=== PATIENT | female | born 1945 | race Caucasian/White ===

== ENCOUNTER 2016-09-14 09:23 | Day surgery (SDC) | payer MEDICARE ==
[2016-09-12 16:11] VITALS: BMI 28.3
--- NOTE | 2016-09-13 15:05 | HP ---
DATE OF ADMISSION: 09/14/2016 Ashley Felipe is a 71-year-old patient seen with progressive left knee pain. After having treatment options discussed, she elected to proceed with left knee arthroscopy. Consent was obtained. Medical clearance provided by Dr. Shon Kc. Past medical history is hypertension, hyperlipidemia, osteoarthritis. PAST SURGICAL HISTORY: Hysterectomy, right knee arthroscopy, trigger thumb release. Daily medications are Cozaar, Evista, simvastatin, Aleve. ALLERGIES: SULFA. SOCIAL HISTORY: Patient denies tobacco use. Evaluation of the left knee: Range of motion is -3 to 115 degrees. There is tenderness along the medial joint line. A positive medial Shraddha's. Crepitus along the medial compartment and some discomfort of the patellofemoral compression. Ligaments stable. Hip rotation without pain. Distal neurovascular exam is intact. Radiographs of the left knee revealed moderate medial and mild patellofemoral compartment osteoarthritis. An MRI of the left knee revealed a complex tear involving the posterior medial meniscus as well as some osteoarthritic changes. IMPRESSION: Internal derangement of the left knee with medial meniscal tear. PLAN: Left knee arthroscopy with partial meniscectomy and debridement.
[~2016-09-14 09:23] MED LIST: DEXAMETHASONE SOD PHOSPHATE 10 MG/ML 1 ML VIAL IV ONE; LACTATED RINGERS 1,000 ML IV SCH; LIDOCAINE 1% 20 ML VIAL (10MG/ML) FOR IV START INTRADERMA PRN; MIDAZOLAM 2 MG/2 ML VIAL IV PRN; ONDANSETRON 4 MG/2 ML VIAL IVP ONE; Pre Op ABX Message 1 EACH MISC MISCELLANE ONE; SCOPOLAMINE 1.5MG/72HR PATCH TRANSDERM ONE
[2016-09-14] MEDS ORDERED: ceFAZolin 2 GM in SODIUM CHLORIDE 0.9% 100 ML IVPB STA (10:19)
[2016-09-14] MEDS ORDERED: PROPOFOL 10 MG/ML 20 ML VIAL IV ONE (11:23)
[2016-09-14] MEDS ORDERED: MIDAZOLAM 2 MG/2 ML VIAL ONE (11:23)
[2016-09-14] MEDS ORDERED: fentaNYL (PF) 50 MCG/ML 2 ML AMP ONE (11:23)
[2016-09-14] MEDS ORDERED: LIDOCAINE 1% INJ 10MG/ML (20 ML MDV) ONE (11:23)
[2016-09-14] MEDS ORDERED: SUCCINYLCHOLINE CHLORIDE 100 MG/5 ML SYR IV ONE (11:23)
[2016-09-14] MEDS ORDERED: BUPIVACAIN-EPI 0.25%-1:200,000 30 ML VIAL INTRAARTIC ONE ×2 (11:50→12:11)
--- NOTE | 2016-09-14 12:38 | P.OP ---
Date of Procedure: 09/14/16 Preoperative Diagnosis: Internal derangement left knee Postoperative Diagnosis: 1. Tear medial and lateral meniscus left knee 2. Grade 3 chondromalacia medial femoral condyle left knee 3. Grade 3 chondromalacia lateral tibial plateau left knee 4. Grade 2/3 chondromalacia patella left knee 5. Reactive synovitis medial and suprapatellar compartments left knee Procedure(s) Performed: 1. Arthroscopic partial medial and lateral meniscectomy left knee 2. Arthroscopic chondroplasty medial femoral condyle left knee 3. Arthroscopic chondroplasty lateral tibial plateau left knee 4. Arthroscopic chondroplasty patella left knee 5. Arthroscopic partial synovectomy medial and suprapatellar compartments left knee Anesthesia: GETA Surgeon: Johny Soni Estimated Blood Loss (ml): 10 Pathology: none sent Condition: stable Disposition: PACU Indications for Procedure: 71-year-old patient seen with progressive pain. After having treatment options discussed, she elected to proceed with left knee arthroscopy. Description of Procedure: Patient was taken to the operative suite. Patient underwent a general anesthetic by the department of anesthesia. Patient was given preoperative antibiotics. The left lower extremity was placed in a well-padded arthroscopic leg coleman. The left leg was prepped and draped in the normal sterile orthopedic fashion. A lateral parapatellar and suprapatellar incision was made. Trochars were inserted. Arthroscopy was initiated. Suprapatellar pouch revealed diffuse thick reactive synovitis. The patellofemoral joint appeared to articulate congruently. There was grade 2/3 chondromalacia. The scope was guided into the medial gutter. No loose bodies or plica were identified. The scope was then guided into the medial compartment. A medial parapatellar incision was made. Trocar inserted followed by probe. There was a complex tear involving the posterior horn and midbody medial meniscus. There were grade 2-3 chondromalacia changes of medial femoral condyle with osteochondral tears present. There was reactive synovitis anteriorly. A partial medial meniscectomy was performed on a stable tissue. A chondroplasty was performed of the medial femoral condyle as well as a partial synovectomy. The residual meniscus and osteochondral surface were probed and found to be stable. Scope and probe were then guided into the intercondylar notch. Cruciates were identified, probed and found to be stable. The scope and probe were then guided into lateral compartment. There was a complex tear posterior horn lateral meniscus. There were grade 3 chondromalacia changes of the lateral tibial plateau and grade 3, she is femoral condyle. A partial lateral meniscectomy was performed on a stable tissue. A chondroplasty lateral femoral condyle and tibial plateau were also performed. The residual meniscus was stable. The scope was in guided back into the suprapatellar compartment. A motorize shaver was introduced into the super compartment performing a chondroplasty the patella. I debrided out some piecemeal fragments of meniscus. I performed a partial synovectomy. The shaver was removed. I took one more look on the entire knee, no residual debris. Instruments were now removed from the joint. The joint was infiltrated with .25% Marcaine. Steri- Strips were applied to the portal sites. Sterile dressings were applied. The patient was placed into a LUCIA hose. No tourniquet was utilized. The patient was awakened, transferred to a bed and taken to recovery stable satisfactory condition.
[2016-09-14 12:40] VITALS: TEMP 97.5
[2016-09-14] MEDS: HYDROmorphone 1 MG/ML 1 ML SYRINGE IVP PRN ×4 (12:49→13:05)
[2016-09-14 13:51] VITALS: RESP 16
[2016-09-14 14:23] VITALS: BP 119/69; PULSE 81
[2016-09-14] MEDS ORDERED: ONDANSETRON 4 MG/2 ML VIAL IVP ONE (14:53)
== END 2016-09-14 15:10 | disposition home or self-care (01) ==
LOC: OR 09:23
PROVIDERS: ATTEND Orthopaedic Surgery
DX: S83.282A Other tear of lateral meniscus, current injury, left knee, initial encounter (principal); S83.242A Other tear of medial meniscus, current injury, left knee, initial encounter; M65.9 Synovitis and tenosynovitis, unspecified; M22.42 Chondromalacia patellae, left knee; I10 Essential (primary) hypertension; E78.5 Hyperlipidemia, unspecified; M17.12 Unilateral primary osteoarthritis, left knee; Z79.1 Long term (current) use of non-steroidal anti-inflammatories (NSAID); Z79.899 Other long term (current) drug therapy; Z88.2 Allergy status to sulfonamides; X58.XXXA Exposure to other specified factors, initial encounter; Z88.5 Allergy status to narcotic agent; Z88.0 Allergy status to penicillin; Z79.82 Long term (current) use of aspirin
CPT/HCPCS: 29880; J2250; J1100; J0690; J2405; J2001; J3010; J1170; J0330; J2704

== ENCOUNTER → 2018-02-19 | Outpatient (CLI) | payer MEDICARE | END | disposition home or self-care (01) | LOC: LABPAT 12:06 | PROVIDERS: ATTEND Orthopaedic Surgery | DX: Z01.812 Encounter for preprocedural laboratory examination (principal) | CPT/HCPCS: 87070 ==

== ENCOUNTER 2018-03-25 10:41 | Inpatient (IN) | payer MEDICARE ==
[2018-03-19 07:58] VITALS: BMI 28.5
--- NOTE | 2018-03-24 13:25 | HP ---
HISTORY AND PHYSICAL REASON FOR ADMISSION: Surgery scheduled for 03/25/2018 HISTORY OF PRESENT ILLNESS: Ashley Felipe is a 72-year-old patient seen with symptomatic right knee osteoarthritis. Treatment options discussed. She elected to proceed right total knee arthroplasty. Consent was obtained, clearance was provided by Dr. Shon Kc. PAST MEDICAL HISTORY: Hypertension, hyperlipidemia. PAST SURGICAL HISTORY: Hysterectomy, right knee arthroscopy, trigger thumb release. MEDICATIONS: Cozaar, Evista, simvastatin, Tylenol. ALLERGIES: SULFA. SOCIAL HISTORY: Patient denies current tobacco use. PHYSICAL EXAMINATION: Evaluation right knee range of motion -6/7 110 degrees. Tenderness along the medial joint line. Crepitus medial patellofemoral compartments with range of motion. Pain with patellofemoral compression. Ligaments stable. Hip rotation without pain. Distal neurovascular exam intact. RADIOGRAPHS: Which were obtained of the right knee revealed severe medial and moderate patellofemoral compartment osteoarthritis. IMPRESSION: 1. Right knee osteoarthritis. 2. Hyperlipidemia. 3. Hypertension. PLAN: Right total knee arthroplasty. Surgery scheduled for 03/25/2018. MMODL / IJN: [id number] /
[~2018-03-25 10:41] MED LIST changes: +ACETAMINOPHEN TAB 500 MG TAB PO ONE; -DEXAMETHASONE SOD PHOSPHATE 10 MG/ML 1 ML VIAL IV ONE; -LACTATED RINGERS 1,000 ML IV SCH; +MELOXICAM 7.5 MG TAB PO ONE; +ONDANSETRON 4 MG/2 ML VIAL ONE; -Pre Op ABX Message 1 EACH MISC MISCELLANE ONE; +ROPIVACAINE 1,100 MG, SODIUM CHLORIDE 0.9% 330 ML MISCELLANE PRN; -SCOPOLAMINE 1.5MG/72HR PATCH TRANSDERM ONE; +TRANEXAMIC ACID 1,000 MG in SODIUM CHLORIDE 0.9% 50 ML IVPB ONE; +ceFAZolin IN SWFI 2 GM/20 ML SYRINGE IVP ONE; +fentaNYL (PF) 50 MCG/ML 2 ML AMP IV PRN
[2018-03-25] MEDS ORDERED: DEXAMETHASONE SOD PHOS (MDV) 100 MG/10 ML VIAL IVP ONE (11:42)
[2018-03-25] MEDS ORDERED: LACTATED RINGERS 1,000 ML IV ONE ×2 (11:42→14:26)
[2018-03-25] MEDS ORDERED: MIDAZOLAM 2 MG/2 ML VIAL ONE ×2 (11:42→12:49)
--- NOTE | 2018-03-25 12:35 | P.ONQ ---
Anesthesiology Proc Note - PNB - Peripheral Nerve Block Performed Right Adductor Canal Infusion Time Out Performed: Yes Procedure Start Time: 11:52 Indication: Acute Post-Operative Pain, Analgesia Specifically requested for management of pain by DrKathrine: Johny Soni Sedation Type: Sedate with meaningful contact maintained Preparation: Sterile Prep Position: Supine Catheter Depth at Skin (cm): 6 Catheter: Indwelling Needle Size: 100mm (4") Needle Gauge: 21 Technique: Ultrasound Injectate: 0.5% Ropivacaine (see comment for volume) (20 cc) Blood Aspirated: No Pain Paresthesia on Injection Noted: No Resistance on Injection: Normal Events: Uneventful and Well Tolerated
[2018-03-25] MEDS ORDERED: fentaNYL (PF) 50 MCG/ML 2 ML AMP ONE (12:49)
[2018-03-25] MEDS ORDERED: TRANEXAMIC ACID 1,000 MG/10 ML VIAL ONE (12:49)
[2018-03-25] MEDS ORDERED: SODIUM CHLORIDE 0.9% 100 ML BAG ONE (12:49)
[2018-03-25] MEDS ORDERED: PROPOFOL 10 MG/ML 20 ML VIAL IV ONE (12:49)
[2018-03-25] MEDS ORDERED: ePHEDrine SULFATE/0.9% NACL/PF 50 MG/5 ML SYRINGE IV ONE (12:49)
[2018-03-25] MEDS ORDERED: ROPIVACAINE 246.25 MG, EPINEPHrine 0.5 MG, KETOROLAC 30 MG, cloNIDine HCL/PF 80 MCG, WA... MISCELLANE ONE ×5 (13:19)
[2018-03-25] MEDS ORDERED: ceFAZolin 3,000 MG in SODIUM CHLORIDE 0.9% IRRIGATIO 3,000 ML IRRIGATION ONE (13:42)
[2018-03-25] MEDS ORDERED: HYDROcodone/APAP 7.5-325MG 1 EACH TAB PO PRN ×2 (14:48)
[2018-03-25] MEDS ORDERED: ONDANSETRON 4 MG/2 ML VIAL IVP PRN (14:48)
[2018-03-25] MEDS ORDERED: NALOXONE 0.4 MG/ML 1 ML VIAL IV PRN (14:48)
[2018-03-25] MEDS ORDERED: HYDROmorphone 1 MG/ML 1 ML SYRINGE IVP PRN ×2 (14:48)
--- NOTE | 2018-03-25 14:48 | P.OP ---
Date of Procedure: 03/25/18 Preoperative Diagnosis: Right knee osteoarthritis Postoperative Diagnosis: Right knee osteoarthritis Procedure(s) Performed: Right total knee arthroplasty Implants: 1. Microport evolution MP size 4 right cemented femoral component 2. Microport evolution size 4 right cemented keeled tibial baseplate 3. Microport evolution MP CS size 4 right 10 mm polyethylene tibial insert 4. Microport advance 35 mm all polyethylene cemented patella Anesthesia: regional (Adductor canal catheter), local, spinal Surgeon: Johny Soni Nail Expert #1: Facundo Javed Estimated Blood Loss (ml): 50 Pathology: other Condition: stable Disposition: PACU Indications for Procedure: 72-year-old patient seen with symptomatic right knee osteoarthritis. After having treatment options discussed, she elected to proceed with total knee arthroplasty. Operative Findings: See description of procedure Description of Procedure: Patient was taken to the operative suite after having an adductor canal catheter placed by the department of anesthesia. Patient underwent a spinal anesthetic by the department of anesthesia. Patient was given preoperative IV intake antibiotics and TXA. A well-padded tourniquet was placed about the right lower extremity. The lower extremity was then prepped and draped in the normal sterile orthopedic fashion. The extremity was elevated, a tourniquet was insufflated to 300. A standard anterior incision was made sharply through skin. Dissection was taken down through the subcutaneous soft tissues down to the extensor mechanism. A medial arthrotomy was performed, patella was everted and knee was flexed. There was advanced osteoarthritis noted. A proximal tibial cutting guide was positioned. Proximal tibial cut was made. A distal intramedullary femoral cutting guide was positioned, distal femoral cut made. We placed the appropriate sizing guide and selected the appropriate size. A distal 4-in-1 femoral cutting block was positioned, distal femoral cuts were made. We now placed a trial femoral component into position, along with an appropriate size tibial tray and insert. We now took the knee through range of motion and had full extension good flexion and good overall soft tissue balance noted. The patella was everted and a flush cut made with patellar quad tendon. We templated the patella, appropriate drill holes were made. An appropriate trial patella was positioned, knee was taken through full range of motion with the patella tracking very nicely. The trial patella was removed. Drill holes were made through the femoral component. All trial components were removed after marking off the appropriate rotation of the tibia. Retractors were now positioned along the proximal tibia. An appropriate keel punch was made with the appropriate size tibial guide. At this point appropriate size implants were chosen and opened. The joint was irrigated copiously with pulse lavage mechanical irrigation. The deep soft tissues were infiltrated with local analgesic. We mixed antibiotic methylmethacrylate. Once the methyl methacrylate was ready, the tibial component was cemented into place removing any excess methylmethacrylate. The femoral component was cemented into place removing the removing any excess methylmethacrylate. We then inserted the appropriate size polyethylene tibial insert. We made sure that it was locked into position. We took the knee into full extension, and then back in a flexion making sure we had removed any excess methylmethacrylate. The patellar component was then cemented down and secured with clamp. Excess methylmethacrylate removed. We kept the knee in full extension, patellar clamp in position until methylmethacrylate had hardened. Once it had hardened the patellar clamp was removed. The knee was taken through full range of motion. The patella tracked nicely. There was good soft tissue balancing. The tourniquet was now released. Additional hemostasis was achieved via electrocautery. A second gram of TXA was given. The wound was irrigated with pulse lavage mechanical irrigation. The superficial soft tissues were infiltrated local analgesic. The extensor mechanism was repaired with Vicryl. We checked the repair with range of motion and it was stable. The subcutaneous soft tissues were repaired with Vicryl in layers. The skin was approximated with pernio/Dermabond. Sterile dressings were applied followed by loose web roll and Miguel A bandage. The patient was transferred to a bed, and taken to recovery in stable and satisfactory condition. Flaco MON assisted with the procedure.
--- NOTE | 2018-03-25 15:44 | XR ---
EXAMINATION TYPE: XR knee limited RT DATE OF EXAM: 03/25/2018 COMPARISON: NONE HISTORY: 72-year-old female evaluation for postoperative abnormality and alignment TECHNIQUE: 2 views FINDINGS: Images show placement of right total knee arthroplasty. Both distal femoral and proximal tibial compo nents of the prosthesis are well seated without periprosthetic fracture. Anterior soft tissue swellin g with soft tissue air as well as intra-articular air related to recent operation. Alignment grossly anatomic. IMPRESSION: Uncomplicated postoperative appearance right total knee arthroplasty.
[2018-03-25] MEDS ORDERED: SENNOSIDES-DOCUSATE SODIUM 1 EACH TAB PO SCH (21:00)
[2018-03-25] MEDS: HYDROmorphone 1 MG/ML 1 ML SYRINGE IVP PRN (21:56)
[2018-03-25] MEDS: LACTATED RINGERS 1,000 ML IV SCH ×3 (22:13→22:26)
[2018-03-25] MEDS: traMADol 50 MG TAB PO SCH ×2 (22:25→23:57)
[2018-03-25] MEDS: ENOXAPARIN 30 MG/0.3 ML SYRINGE SQ SCH (22:26)
[2018-03-25] MEDS: ceFAZolin IN SWFI 2 GM/20 ML SYRINGE IVP SCH (23:56)
[2018-03-26] MEDS: HYDROmorphone 1 MG/ML 1 ML SYRINGE IVP PRN ×2 (01:28→04:50)
[2018-03-26] MEDS: ceFAZolin IN SWFI 2 GM/20 ML SYRINGE IVP SCH (05:35)
[2018-03-26] MEDS: LACTATED RINGERS 1,000 ML IV SCH ×2 (08:44→15:03)
[2018-03-26] MEDS: ENOXAPARIN 30 MG/0.3 ML SYRINGE SQ SCH (08:48)
[2018-03-26] MEDS: traMADol 50 MG TAB PO SCH ×2 (08:49→12:30)
[2018-03-26] MEDS ORDERED: FAMOTIDINE 20 MG TAB PO SCH (09:00)
[2018-03-26] MEDS ORDERED: LOSARTAN 50 MG TAB PO SCH (09:00)
[2018-03-26] MEDS ORDERED: MELOXICAM 7.5 MG TAB PO SCH (09:00)
--- NOTE | 2018-03-26 11:08 | P.PN ---
Progress Note - Text Anesthesia POD 1. Patient is status post right TKR under spinal anesthesia with a right adductor canal catheter placed for postoperative pain relief. With ropivacaine 0.2% running at 8 cc's per hour, the patient's VAS is (0, 2). Catheter site is clean dry and intact.
--- NOTE | 2018-03-26 13:32 | P.PN ---
Subjective Progress Note Date: 03/26/18 Principal diagnosis: Status post right total knee arthroplasty Patient seen today resting in her hospital bed, she appears comfortable. Her family is present at bedside. She's ambulated well with therapy. She denies any headaches, lightheadedness, chest pain or shortness of breath. Objective - Vital Signs Vital signs: Vital Signs Temp 97.6 F 03/26/18 07:30 Pulse 75 03/26/18 07:30 Resp 20 03/26/18 07:30 BP 113/70 03/26/18 07:30 Pulse Ox 96 03/26/18 07:30 Intake & Output 03/25/18 03/26/18 03/26/18 18:59 06:59 18:59 Intake Total 2000 1580 Output Total 50 600 Balance 1950 980 Intake: IV 2000 Intake, IV Titration 980 Amount Lactated Ringers 1,000 ml 980 @ 70 mls/hr IV .[id number] [facility] Rx#:[id number] Oral 600 Output: Urine 600 Estimated Blood Loss 50 Other: Voiding Method Toilet # Voids 3 - Exam Right lower extremity: Incision is clean, dry, and intact. The prineo tape is in good condition. There is minimal soft tissue swelling and ecchymosis surrounding the medial and lateral aspects of the incision. Calf is soft, no tenderness with palpation. Plantar flexion, dorsiflexion, EHL, FHL are intact. Sensory exam to light touch throughout the extremity is intact, dorsal pedis pulses 2+. Assessment and Plan Plan: Assessment: Postoperative day 1 status post right total knee arthroplasty Plan: Pain control, continue use of oral medication GI and DVT prophylaxis, continue Lovenox Wound care instructions discussed Ice and elevate Continue work with therapy Medical recommendations Possible discharge home today, we'll recheck this afternoon Time with Patient: Less than 30
--- NOTE | 2018-03-26 14:37 | P.CONS ---
History of Present Illness - Reason for Consult Consult date: 03/26/18 medical management - Chief Complaint s/p right TKA - History of Present Illness 72-year-old female who underwent elective right total knee arthroplasty on 03/25/2018. Dr. Kc was consulted for medical management. The patient's history of hyperlipidemia, hypertension, and osteoarthritis. Patient was seen at the bedside this morning by Dr. Kc. The patient states her pain is tolerable at this time. She denies chest pain or pressure. She denies shortness of breath. She states she has been ambulating with therapy today. Tolerating PO intake without nausea or vomiting. Vital signs have been stable. She is afebrile. Review of Systems Those systems with pertinent positive or pertinent negative responses have been documented in the HPI Past Medical History Past Medical History: Hyperlipidemia, Hypertension, Osteoarthritis (OA) Additional Past Medical History / Comment(s): osteoporosis History of Any Multi-Drug Resistant Organisms: None Reported Past Surgical History: Cholecystectomy, Hysterectomy, Orthopedic Surgery Additional Past Surgical History / Comment(s): arthroscopies mary. knees Past Anesthesia/Blood Transfusion Reactions: No Reported Reaction Smoking Status: Never smoker - Past Family History Mother Family Medical History: Myocardial Infarction (CO) Medications and Allergies Home Medications Medication Instructions Recorded Confirmed Type Calcium Carbonate [Calcium] 600 mg PO BID 01/08/15 03/25/18 History Glucosamine Sulfate 500 mg PO BID 01/08/15 03/25/18 History Losartan Potassium [Cozaar] 100 mg PO DAILY 01/08/15 03/25/18 History Multivitamins, Thera [Theragran] 1 tab PO DAILY 01/08/15 03/25/18 History Raloxifene [Evista] 60 mg PO DAILY 01/08/15 03/25/18 History Simvastatin [Zocor] 20 mg PO HS 01/08/15 03/25/18 History Aspirin 81 mg PO DAILY 09/12/16 03/25/18 History Acetaminophen [Tylenol Arthritis] 650 mg PO Q6H PRN 03/19/18 03/25/18 History Allergies Allergy/AdvReac Type Severity Reaction Status Date / Time hydrocodone [From [place]] AdvReac Abdominal Verified 03/25/18 16:50 Pain Penicillins AdvReac Unknown Verified 03/25/18 16:50 Sulfa (Sulfonamide AdvReac Unknown Verified 03/25/18 16:50 Antibiotics) Physical Exam Vitals: Vital Signs Temp Pulse Pulse Resp BP Pulse Ox 03/26/18 07:30 97.6 F 75 20 113/70 96 03/26/18 01:20 97.7 F 86 16 116/71 92 L 03/26/18 00:40 16 03/25/18 22:20 16 03/25/18 19:48 16 03/25/18 19:43 97.8 F 94 18 121/64 97 03/25/18 17:00 90 128/79 98 03/25/18 16:45 120 H 129/77 96 03/25/18 16:30 93 129/77 97 03/25/18 16:15 91 131/75 98 03/25/18 16:00 88 124/63 99 03/25/18 15:45 96 129/75 92 L 03/25/18 15:42 90 16 126/61 96 03/25/18 15:30 96.7 F L 96 129/75 97 03/25/18 15:27 96 16 130/60 95 03/25/18 15:12 96.8 F L 97 16 126/60 99 Intake and Output 03/25/18 03/26/18 03/26/18 22:59 06:59 14:59 Intake Total 1320 960 Output Total 600 Balance 720 960 Intake: IV 700 Intake, IV Titration 420 560 Amount Lactated Ringers 1,000 ml 420 560 @ 70 mls/hr IV .[id number] [facility] Rx#:[id number] Oral 200 400 Output: Urine 600 Other: Voiding Method Toilet # Voids 1 3 GENERAL: This is a 72-year-old female in no apparent distress at the time of examination. Pleasant and cooperative. HEENT: Head is atraumatic, normocephalic. Pupils are equal, round, and reactive to light. Sclerae anicteric. Conjunctivae are clear. Mucus membranes of the mouth are moist. Neck is supple. RESPIRATORY: Clear to ausculation. No wheezes, rales, or rhonchi. No use of accessory muscles. Patient maintaining oxygen saturation greater than 92%. No chest wall tenderness is noted on palpation or with deep breathing. CARDIOVASCULAR: Regular rate and rhythm. S1 and S2 noted. No systolic or diastolic murmur auscultated. No JVD noted. No S3 or S4 noted. GASTROINTESTINAL: No distention noted. Abdomen soft and round. Normal active bowel sounds auscultated x 4 quadrants. No pain or tenderness noted upon palpation. INTEGUMENTARY: Dressing to right knee clean dry and intact. No cyanosis. No jaundice. No rashes noted. No cellulitis noted. EXTREMITIES: 2+ peripheral pulses. No evidence of peripheral edema. No calf tenderness noted. NEUROLOGIC: Cranial nerves II-XII intact. PSYCHIATRIC: Awake, alert, and oriented X 3. Appropriate affect. Intact judgement and insight. Assessment and Plan Plan: ASSESSMENT: Osteoarthritis, status post right total knee arthroplasty, POD #1 Hypertension Hyperlipidemia PLAN: Continue postoperative care per orthopedics Activity as tolerated Pain control Incentive spirometer 10 times an hour while awake Home meds as appropriate Monitor labs GI prophylaxis: Pepcid 20 mg by mouth daily DVT prophylaxis: Lovenox 30 mg subcu every 12 hours Monitor vital signs and address as appropriate Further recommendations pending patient's course Patient is cleared for discharge from a medical standpoint when cleared by orthopedics Thank you for this consultation. We will continue to follow with Ashley during her hospitalization. Nurse practitioner note has been reviewed by physician. Signing provider agrees with the documented findings, assessment, and plan of care.
[2018-03-26 15:31] VITALS: BP 129/77; PULSE 68; RESP 16; TEMP 98.6
--- NOTE | 2018-03-26 16:14 | P.DS ---
Providers Date of admission: 03/25/18 10:41 Expected date of discharge: 03/26/18 Attending physician: Johny Soni Consults: 03/25/18 14:48 Consult Physician Routine Consulting Provider: Shon Kc Reason/Comments: Medical management Do you want consulting provider notified?: Yes Primary care physician: Shon Kc [facility] Course: Date of admission: 03/25/2018 Date of discharge: 03/26/2018 Admission diagnosis: Status post right total knee arthroplasty Discharge diagnosis: Same Attending physician: Dr. Soni Surgical procedures: Right total knee arthroplasty Brief history: Patient is a 72-year-old female with a history of progressive primary right knee osteoarthritis. At this point patient has failed conservative treatment measures and has opted to proceed with a elective right total knee arthroplasty. Hospital course: Details of patient's surgery can be found in operative report. Patient tolerated the procedure well and was subsequently transported to orthopedic floor. Patient's orthopeidc and medical care was provided daily. Patient had daily laboratory tests performed for evaluation of overall blood counts . Patient had daily physical therapy to include strengthening range of motion as well as education with walker ambulation. Patient had daily CPM usage as part of their physical therapy program. Patient was treated with Lovenox for their postoperative DVT prophylaxis during their inpatient stay. Patient was noted to have a relatively uneventful postoperative course. Patient reported satisfactory pain control with oral pain medications by postoperative day 0. Patient showed satisfactory progress with physical therapy. Patient moved steadily through the program and had no difficulty meeting the goals by postoperative day 1. Given patient's otherwise satisfactory course and having met physical therapy goals, plan is to discharge patient home on postoperative day 1. Discharge condition/disposition: Patient will be discharged home in stable condition. Discharge medications: Instructions are given on resumption of patient's normal daily medications per primary care recommendation, in addition patient will be prescribed tramadol 50 mg, aspirin 325 mg. Discharge instructions: 1. Wound care and infection precautions, keep incision dry and covered while showering, no lotions, creams, moisturizers. No soaking, tubs, pools, hottubs. Do not scrub over the incision. 2. Weight-bear [as tolerated] with walker / cane until follow-up. 3. Ice and elevate when necessary. Do not exceed 20 minutes per hour with ice pack. 4. Utilize compression sleeve until seen at first follow up appointment. 5. Visiting nursing care. 6. Home physical therapy [including home CPM]. 7. Pain meds and anticoagulants per prescription. 8. Pain medication has potential to cause constipation. Increase oral fluid and fiber intake. Contact primary care provider if you have not had a bowel movement within 48 hours after discharge 9. No anti-inflammatory medication until discussed at first post operative visit, this including Motrin, Aleve, Mobic, Diclofenac. 10. Follow up in office at 2 weeks postop with Flaco Javed PA-C 11. Follow up with your primary care doctor 7-10 days after discharge. 12. Contact [facility] with any questions, . Procedures: Right total knee arthroplasty Patient Condition at Discharge: Good Plan - Discharge Summary Discharge Rx Participant: Yes New Discharge Prescriptions: New Aspirin 325 mg PO BID #60 tab traMADol HCl [Ultram] 50 mg PO Q6H PRN #28 tab PRN Reason: Pain Continue Multivitamins, Thera [Multivitamin (formulary)] 1 tab PO DAILY Losartan Potassium [Cozaar] 100 mg PO DAILY Calcium Carbonate [Calcium] 600 mg PO BID Simvastatin [Zocor] 20 mg PO HS Acetaminophen [Tylenol Arthritis] 650 mg PO Q6H PRN PRN Reason: Pain No Action Raloxifene [Evista] 60 mg PO DAILY Glucosamine Sulfate 500 mg PO BID Aspirin 81 mg PO DAILY Discharge Medication List Calcium Carbonate [Calcium] 600 mg PO BID 01/08/15 [History] Glucosamine Sulfate 500 mg PO BID 01/08/15 [History] Losartan Potassium [Cozaar] 100 mg PO DAILY 01/08/15 [History] Multivitamins, Thera [Multivitamin (formulary)] 1 tab PO DAILY 01/08/15 [History ] Raloxifene [Evista] 60 mg PO DAILY 01/08/15 [History] Simvastatin [Zocor] 20 mg PO HS 01/08/15 [History] Aspirin 81 mg PO DAILY 09/12/16 [History] Acetaminophen [Tylenol Arthritis] 650 mg PO Q6H PRN 03/19/18 [History] Aspirin 325 mg PO BID #60 tab 03/26/18 [Rx] traMADol HCl [Ultram] 50 mg PO Q6H PRN #28 tab 03/26/18 [Rx] Follow up Appointment(s)/Referral(s): Shon Kc DO [Primary Care Provider] - 1 Week [facility], [NON-STAFF] - Facundo Javed PAC [PHYSICIAN SANDSTONE INSPECTOR REPAIRER] - 04/10/18 3:40 pm Patient Instructions/Handouts: Knee Replacement (DC) Activity/Diet/Wound Care/Special Instructions: Orthopedic Discharge Instructions: 1. Wound care and infection precautions, keep incision dry and covered while showering, no lotions, creams, moisturizers. No soaking, pools, hot tubs. Do not scrub over incision. 2. Weight-bear as tolerated with walker / cane until follow-up. 3. Ice and elevate when necessary. Do not exceed 20 minutes per hour with ice pack. 4. Utilize compression sleeve until seen at first follow up appointment. 5. Visiting nursing care. 6. Home physical therapy including home CPM. 7. Pain meds and anticoagulants per prescription. 8. Pain medication has potential to cause constipation. Increase oral fluid and fiber intake. Contact primary care provider if you have not had a bowel movement within 48 hours after discharge. 9. No anti-inflammatory medication until discussed at first post operative visit, this including Motrin, Aleve, Mobic, Diclofenac. 10. Follow up in office at 2 weeks postop with Flaco Javed PA-C 11. Follow up with your primary care doctor 7-10 days after discharge. 12. Contact [facility] with any questions, . Discharge Disposition: HOME WITH HOME HEALTH SERVICES
[2018-03-26] MEDS ORDERED: ATORVASTATIN 10 MG TAB PO SCH (21:00)
== END 2018-03-26 17:20 | disposition home health service (06) | DRG 470 ==
LOC: 2ORMAIN 10:41 → 3SUR 14:45 → UNDODISIN 19:40 → 3SUR 20:23
PROVIDERS: ADMIT Orthopaedic Surgery; ATTEND Orthopaedic Surgery
PROC: 0SRC0J9 Replacement of Right Knee Joint with Synthetic Substitute, Cemented, Open Approach (ICD-10-PCS; principal; 2018-03-25 12:30)
DX: M17.11 Unilateral primary osteoarthritis, right knee (principal); E78.5 Hyperlipidemia, unspecified; I10 Essential (primary) hypertension; M81.0 Age-related osteoporosis without current pathological fracture; Z79.82 Long term (current) use of aspirin; Z82.49 Family history of ischemic heart disease and other diseases of the circulatory system; Z90.710 Acquired absence of both cervix and uterus; Z79.899 Other long term (current) drug therapy; Z88.5 Allergy status to narcotic agent; Z88.0 Allergy status to penicillin; Z88.2 Allergy status to sulfonamides
CPT/HCPCS: 88300

== ENCOUNTER → 2018-07-03 | Outpatient (CLI) | payer MEDICARE ==
--- NOTE | 2018-07-04 11:22 | MM ---
Reason for exam: screening (asymptomatic). Last mammogram was performed 2 years ago. History: Patient is postmenopausal. Benign right mammotome panel of the right breast, November 09, 2006. Took estrogen for 2 years. Physical Findings: A clinical breast exam by your physician is recommended on an annual basis and results should be correlated with mammographic findings. MG 3D Screening Mammo W/Cad Bilateral CC and MLO view(s) were taken. Prior study comparison: June 22, 2016, bilateral MG 3d screening mammo w/cad. November 27, 2013, bilateral digital screening mammo w/CAD. The breast tissue is heterogeneously dense. This may lower the sensitivity of mammography. Previous mammotome biopsy in the right breast. There is no discrete abnormality. No significant changes when compared with prior studies. ASSESSMENT: Negative, BI-RAD 1 RECOMMENDATION: Routine screening mammogram of both breasts in 1 year.
== END | disposition home or self-care (01) ==
LOC: RADMAMWWP 10:09
PROVIDERS: ATTEND Family Medicine
DX: Z12.31 Encounter for screening mammogram for malignant neoplasm of breast (principal)
CPT/HCPCS: 77063; 77067

== ENCOUNTER → 2018-07-03 | Outpatient (CLI) | payer MEDICARE | END | disposition home or self-care (01) | LOC: LABPAT 10:46 | PROVIDERS: ATTEND Orthopaedic Surgery | DX: Z01.812 Encounter for preprocedural laboratory examination (principal) | CPT/HCPCS: 87070 ==

== ENCOUNTER 2018-07-08 10:23 | Inpatient (IN) | payer MEDICARE ==
[2018-06-28 15:30] VITALS: BMI 27.8
--- NOTE | 2018-07-07 08:20 | HP ---
HISTORY AND PHYSICAL REASON FOR ADMISSION: Surgery scheduled for 07/08/2018 HISTORY OF PRESENT ILLNESS: Ashley Felipe is a 72-year-old patient seen with symptomatic left knee osteoarthritis. We discussed treatment options. She elected to proceed with left total knee arthroplasty. Consent regarding procedure obtained. Medical clearance was provided by Dr. Shon Kc. PAST MEDICAL HISTORY: Hypertension, hyperlipidemia. PAST SURGICAL HISTORY: Hysterectomy, right knee arthroscopy, right trigger thumb release. MEDICATIONS: Cozaar, Evista, simvastatin. ALLERGIES: SULFA, NORCO. SOCIAL HISTORY: The patient denies current tobacco use. PHYSICAL EXAMINATION: Evaluation of the left knee: Range of motion is negative to 120 degrees. Mild effusion. Tenderness medial joint line. Crepitus medial patellofemoral compartments with range of motion. There is pain with patellofemoral compression. Ligaments stable. Hip rotation without pain. Distal neurovascular exam intact. RADIOGRAPHS: Left knee radiographs reveal severe medial moderate patellofemoral compartment osteoarthritis. IMPRESSION: 1. Left knee osteoarthritis. 2. Hyperlipidemia. 3. Hypertension. PLAN: Left total knee arthroplasty. Surgery scheduled 07/08/2018. MMODL / IJN: [id number] /
[~2018-07-08 10:23] MED LIST changes: -MIDAZOLAM 2 MG/2 ML VIAL IV PRN; -ONDANSETRON 4 MG/2 ML VIAL ONE; -ROPIVACAINE 1,100 MG, SODIUM CHLORIDE 0.9% 330 ML MISCELLANE PRN
[2018-07-08] MEDS ORDERED: MIDAZOLAM 2 MG/2 ML VIAL IV ONE (11:36)
[2018-07-08] MEDS ORDERED: ROPIVACAINE 246.25 MG, EPINEPHrine 0.5 MG, KETOROLAC 30 MG, cloNIDine HCL/PF 80 MCG, WA... MISCELLANE ONE ×5 (11:46)
[2018-07-08] MEDS: LACTATED RINGERS 1,000 ML IV SCH ×2 (12:01→16:44)
[2018-07-08] MEDS ORDERED: diphenhydrAMINE 50 MG/ML 1 ML VIAL ONE (12:36)
[2018-07-08] MEDS ORDERED: fentaNYL (PF) 50 MCG/ML 2 ML AMP ONE (12:36)
[2018-07-08] MEDS ORDERED: MIDAZOLAM 2 MG/2 ML VIAL ONE (12:36)
[2018-07-08] MEDS ORDERED: TRANEXAMIC ACID 1,000 MG/10 ML VIAL ONE (12:36)
[2018-07-08] MEDS ORDERED: SODIUM CHLORIDE 0.9% 50 ML with ceFAZolin 2,000 MG IV ONE ×2 (12:36)
[2018-07-08] MEDS ORDERED: SODIUM CHLORIDE 0.9% 100 ML BAG ONE (12:36)
[2018-07-08] MEDS ORDERED: CLINDAMYCIN 1,800 MG in SODIUM CHLORIDE 0.9% IRRIGATIO 3,000 ML IRRIGATION ONE (13:04)
[2018-07-08] MEDS ORDERED: LACTATED RINGERS 1,000 ML IV ONE ×2 (13:30)
--- NOTE | 2018-07-08 14:39 | P.OP ---
Date of Procedure: 07/08/18 Preoperative Diagnosis: Left knee osteoarthritis Postoperative Diagnosis: Left knee osteoarthritis Procedure(s) Performed: Left total knee arthroplasty Implants: 1. Microport evolution MP left size 3 cemented femur 2. Microport evolution left size 3 cemented tibial baseplate 3. Microport evolution 14 mm size 3 left CS polyethylene tibial insert 4. Microport advance 35 mm all polyethylene cemented patella Anesthesia: regional (Adductor canal catheter), local, spinal Surgeon: Johny Soni Tool Design Draftsperson #1: Facundo Javed Estimated Blood Loss (ml): 20 Pathology: other (Bone) Condition: stable Disposition: PACU Indications for Procedure: 72-year-old patient seen with symptomatic left knee osteoarthritis. After treatment options were discussed, she elected to proceed with total knee arthroplasty. Operative Findings: see description procedure Description of Procedure: Patient was taken to the operative suite after having an adductor canal catheter placed by the department of anesthesia for postoperative pain control. Patient underwent a spinal anesthetic by the department of anesthesia. Patient was given preoperative IV intake antibiotics and TXA. A well-padded tourniquet was placed about the left lower extremity. The lower extremity was then prepped and draped in the normal sterile orthopedic fashion. The extremity was elevated, a tourniquet was insufflated to 300. A standard anterior incision was made sharply through skin. Dissection was taken down through the subcutaneous soft tissues down to the extensor mechanism. A medial arthrotomy was performed, patella was everted and knee was flexed. There was advanced osteoarthritis noted. I introduced my distal intramedullary femoral drill. I then introduced the distal femoral cutting jig. Flaco MON secured the cutting jig with 2 pins. I held retractors in position while Flaco MON performed the distal femoral resection through the guide area we now removed her distal femoral cutting guide. We now placed our 4-in-1 femoral cutting block and positioned and it was secured with 2 pins by Flaco MON while I held the block in position. The distal femoral finishing was now completed. A proximal tibial cutting guide was positioned. I held the guide in the appropriate position with both hands well Flaco MON inserted stabilizing pins into the guide. Proximal tibial cut was made. We now placed a trial femoral component into position, along with an appropriate size tibial tray and insert. We now took the knee through range of motion and had full extension good flexion and good overall soft tissue balance noted. The patella was everted and stabilized with 2 towel clips held by Flaco MON while I performed a flush with patellar quad tendon utilizing a fresh sawblade. We templated the patella, appropriate drill holes were made. An appropriate trial patella was positioned, knee was taken through full range of motion with the patella tracking very nicely. The trial patella was removed. Drill holes were made through the femoral component. All trial components were removed after marking off the appropriate rotation of the tibia. Retractors were now positioned along the proximal tibia. An appropriate keel punch was made with the appropriate size tibial guide by myself on Flaco MON assisted by holding retractors. At this point appropriate size implants were chosen and opened. The joint was irrigated copiously with pulse lavage mechanical irrigation. The posterior capsule was infiltrated with local analgesic. The wound was irrigated with pulse lavage mechanical irrigation. We mixed antibiotic methylmethacrylate. We placed the knee into flexion. We placed multiple retractors assisted by Flaco MON to expose the proximal tibia. Once the methyl methacrylate was ready, the tibial component was cemented into place removing any excess methylmethacrylate form by both myself and Flaco MON. The femoral component was cemented into place removing the removing any excess methylmethacrylate performed by both myself and Flaco MON. We then inserted the appropriate size polyethylene tibial insert. We made sure that it was locked into position. We took the knee into full extension, and then back in a flexion making sure we had removed any excess methylmethacrylate. The patellar component was then cemented down and secured with clamp. Excess methylmethacrylate removed. We kept the knee in full extension, patellar clamp in position until methylmethacrylate had hardened. Once it had hardened the patellar clamp was removed. The knee was taken through full range of motion. The patella tracked nicely. There was good soft tissue balancing. The tourniquet was now released. Additional hemostasis was achieved via electrocautery. A second gram of TXA was given. The wound again was irrigated with pulse lavage mechanical irrigation. The superficial soft tissues were infiltrated local analgesic. The extensor mechanism was repaired with Vicryl. We checked the repair with range of motion and it was stable. The subcutaneous soft tissues were repaired with Vicryl in layers. The skin was approximated with pernio/Dermabond. Sterile dressings were applied followed by loose web roll and Miguel A bandage. The patient was transferred to a bed, and taken to recovery in stable and satisfactory condition. Flaco MON assisted with this complex procedure.
[2018-07-08] MEDS ORDERED: NALOXONE 0.4 MG/ML 1 ML VIAL IV PRN (14:40)
[2018-07-08] MEDS ORDERED: ONDANSETRON 4 MG/2 ML VIAL IVP PRN (14:40)
[2018-07-08] MEDS ORDERED: HYDROcodone/APAP 5-325MG 1 EACH TAB PO PRN ×2 (14:40)
[2018-07-08] MEDS ORDERED: HYDROmorphone 1 MG/ML 1 ML SYRINGE IVP PRN ×3 (14:40)
[2018-07-08] MEDS ORDERED: ROPIVACAINE 1,100 MG, SODIUM CHLORIDE 0.9% 500 ML 330 ML MISCELLANE PRN ×2 (15:04)
--- NOTE | 2018-07-08 15:06 | P.ONQ ---
Anesthesiology Proc Note - PNB - Peripheral Nerve Block Performed Left Adductor Canal Infusion Time Out Performed: Yes Procedure Start Time: 11:35 Procedure Stop Time: 11:45 Indication: Acute Post-Operative Pain, Requested by physician Sedation Type: Sedate with meaningful contact maintained Preparation: Sterile Dressing Position: Supine Catheter: Indwelling Needle Types: On-Q Needle Size: 50mm (2") Needle Gauge: 21 Technique: Ultrasound Injectate: 0.5% Ropivacaine (see comment for volume) (ropi .5% 20cc) Blood Aspirated: No Pain Paresthesia on Injection Noted: No Resistance on Injection: Normal Events: Uneventful and Well Tolerated
[2018-07-08] MEDS ORDERED: HYDROmorphone 1 MG/ML 1 ML SYRINGE IVP ONE (15:09)
--- NOTE | 2018-07-08 15:30 | XR ---
EXAMINATION TYPE: XR knee limited LT DATE OF EXAM: 07/08/2018 CLINICAL HISTORY: Postoperative evaluation Two views of the left knee are submitted. Identified are changes of total knee arthroplasty with fem oral and tibial components appearing well seated. Postsurgical soft tissue changes are noted. Align ment is anatomic.
[2018-07-08] MEDS: ceFAZolin IN SWFI 2 GM/20 ML SYRINGE IVP SCH (16:43)
[2018-07-08] MEDS: traMADol 50 MG TAB PO SCH ×2 (17:47→21:24)
[2018-07-08] MEDS ORDERED: SENNOSIDES-DOCUSATE SODIUM 1 EACH TAB PO SCH (21:00)
[2018-07-09] MEDS: ceFAZolin IN SWFI 2 GM/20 ML SYRINGE IVP SCH (00:18)
[2018-07-09] MEDS: LACTATED RINGERS 1,000 ML IV SCH ×2 (05:36→05:52)
--- NOTE | 2018-07-09 06:35 | P.PN ---
Subjective Progress Note Date: 07/09/18 doing well this morning, complaining of pain in the posterior knee joint, otherwise the knee feels great. able to ambulate, no leg weakness. Using minimal PRN meds. site is clean and dry, pump running without any leaking. Objective - Vital Signs Vital signs: Vital Signs Temp 97.8 F 07/09/18 00:06 Pulse 76 07/09/18 00:06 Resp 14 07/09/18 00:06 BP 114/72 07/09/18 00:06 Pulse Ox 95 07/09/18 00:06 Intake & Output 07/08/18 07/08/18 07/09/18 06:59 18:59 06:59 Intake Total 1887 Output Total 20 Balance 1867 Weight 68.946 kg Intake: IV 1651 Oral 236 Output: Estimated Blood Loss 20 Other: Voiding Method Toilet # Voids 1
[2018-07-09 07:08] LABS: Basophils % (A) 0 %; Eosinophils # (A) 0.1 k/uL (0-0.7); Eosinophils % (A) 1 %; HGB 10.8 gm/dL (11.4-16.0); Lymphocytes # (A) 1.3 k/uL (1.0-4.8); Lymphocytes % (A) 12 %; MCH 28.5 pg (25.0-35.0); MCHC 31.9 g/dL (31.0-37.0); MCV 89.5 fL (80.0-100.0); Mean Platelet Volume 6.5; Monocytes # (A) 0.6 k/uL (0-1.0); Monocytes % (A) 6 %; Neutrophils # (A) 8.5 k/uL (1.3-7.7); Neutrophils % (A) 81 %; Platelet Count 278 k/uL (150-450); RDW 13.8 % (11.5-15.5); WBC 10.5 k/uL (3.8-10.6)
[2018-07-09] MEDS ORDERED: ACETAMINOPHEN TAB 325 MG TAB PO PRN (07:40)
[2018-07-09] MEDS ORDERED: MELOXICAM 7.5 MG TAB PO SCH (09:00)
[2018-07-09] MEDS ORDERED: ENOXAPARIN 30 MG/0.3 ML SYRINGE SQ SCH (09:00)
[2018-07-09 09:10] VITALS: PULSE 80; TEMP 98
--- NOTE | 2018-07-09 09:54 | P.CONS ---
History of Present Illness - Reason for Consult Consult date: 07/09/18 Medical management Requesting physician: Johny Soni - Chief Complaint s/p left TKA - History of Present Illness 72-year-old female who underwent elective left total knee arthroplasty on 07/08/2018. Dr. Kc was consulted for medical management. The patient has a history of hyperlipidemia, hypertension, and osteoarthritis. The patient underwent right total knee arthroplasty in March 2018. The patient was seen and examined this morning at the bedside. The patient states she is having pain in her left knee and is requesting pain medication. The patient is unable to tolerate [place]. She has Ultram scheduled for times a day but states her pain is tolerable at this time. She denies chest pain or pressure. She denies shortness of breath. She denies nausea or vomiting. She is afebrile. Vital signs have been stable. She reports using her incentive spirometer 10 times an hour. No difficulties urinating. Patient states she is passing gas but has not had a bowel movement today. Review of Systems Those systems with pertinent positive or pertinent negative responses have been documented in the HPI Past Medical History Past Medical History: Hypertension, Osteoarthritis (OA) Additional Past Medical History / Comment(s): had some problems recently w/back pain that turned into chest discomfort, recent stress test wnl per pt, c/o right groin pain-has seen ortho., has gallstones History of Any Multi-Drug Resistant Organisms: None Reported Past Surgical History: Hysterectomy, Orthopedic Surgery Additional Past Surgical History / Comment(s): surgery right knee Past Anesthesia/Blood Transfusion Reactions: No Reported Reaction Additional Past Anesthesia/Blood Transfusion Reaction / Comm: mother took long time to recuberate after anesthesia Past Psychological History: No Psychological Hx Reported Smoking Status: Never smoker Past Alcohol Use History: Occasional Past Drug Use History: None Reported - Past Family History Mother Family Medical History: Myocardial Infarction ([place]) Additional Family Medical History / Comment(s): " from massive heart attack " Medications and Allergies Home Medications Medication Instructions Recorded Confirmed Type Calcium Carbonate [Calcium] 600 mg PO BID 01/08/15 07/08/18 History Glucosamine Sulfate 500 mg PO BID 01/08/15 07/08/18 History Losartan Potassium [Cozaar] 100 mg PO DAILY 01/08/15 07/08/18 History Multivitamins, Thera [Multivitamin 1 tab PO DAILY 01/08/15 07/08/18 History (formulary)] Raloxifene [Evista] 60 mg PO DAILY 01/08/15 07/08/18 History Simvastatin [Zocor] 20 mg PO HS 01/08/15 07/08/18 History Aspirin 81 mg PO DAILY 09/12/16 07/08/18 History Acetaminophen [Tylenol Arthritis] 650 mg PO Q6H PRN 03/19/18 07/08/18 History Allergies Allergy/AdvReac Type Severity Reaction Status Date / Time hydrocodone [From [place]] AdvReac Nausea & Verified 07/08/18 14:57 Vomiting, abdominal pain Penicillins AdvReac Unknown Verified 07/08/18 14:57 Sulfa (Sulfonamide AdvReac Unknown Verified 07/08/18 14:57 Antibiotics) Physical Exam Vitals: Vital Signs Temp Pulse Pulse Pulse Resp BP Pulse Ox 07/09/18 07:00 98.0 F 80 16 124/73 94 L 07/09/18 00:06 97.8 F 76 14 114/72 95 07/08/18 19:10 97.7 F 15 129/79 98 07/08/18 18:00 90 119/80 90 L 07/08/18 17:45 87 111/77 96 07/08/18 17:30 79 131/82 96 07/08/18 17:15 72 96/64 90 L 07/08/18 17:00 97.4 F L 83 134/83 99 07/08/18 15:40 82 18 113/60 97 07/08/18 15:24 79 16 119/59 98 07/08/18 15:09 80 16 119/59 100 07/08/18 15:05 98.2 F 80 119/69 97 07/08/18 14:54 98.1 F 92 16 123/60 98 07/08/18 12:04 86 16 128/69 97 07/08/18 10:48 97.7 F 16 L 16 133/75 98 Intake and Output 07/08/18 07/09/18 07/09/18 22:59 06:59 14:59 Intake Total 486 Balance 486 Intake: IV 250 Oral 236 Other: Voiding Method Toilet # Voids 1 1 Weight 68.946 kg GENERAL: This is a 72-year-old female in no apparent distress at the time of examination. Pleasant and cooperative. HEENT: Head is atraumatic, normocephalic. Pupils are equal, round, and reactive to light. Sclerae anicteric. Conjunctivae are clear. Mucus membranes of the mouth are moist. Neck is supple. RESPIRATORY: Clear to auscultation. No wheezes, rales, or rhonchi. No use of accessory muscles. Patient maintaining oxygen saturation greater than 92%. No chest wall tenderness is noted on palpation or with deep breathing. CARDIOVASCULAR: Regular rate and rhythm. S1 and S2 noted. No systolic or diastolic murmur auscultated. No JVD noted. No S3 or S4 noted. GASTROINTESTINAL: No distention noted. Abdomen soft and round. Normal active bowel sounds auscultated x 4 quadrants. No pain or tenderness noted upon palpation. INTEGUMENTARY: Dressing to left knee clean dry and intact. No drainage or erythema noted. No cyanosis. No jaundice. No rashes noted. No cellulitis noted. EXTREMITIES: 2+ peripheral pulses. Trace edema to left lower extremity. No calf tenderness noted. NEUROLOGIC: Cranial nerves II-XII intact. PSYCHIATRIC: Awake, alert, and oriented X 3. Appropriate affect. Intact judgement and insight. Results CBC & Chem 7: 07/09/18 06:36 Labs: Abnormal Lab Results - Last 24 Hours (Table) 07/09/18 Range/Units 06:36 Hgb 10.8 L (11.4-16.0) gm/dL Neutrophils # 8.5 H (1.3-7.7) k/uL Assessment and Plan Plan: ASSESSMENT: Osteoarthritis, status post left total knee arthroplasty History of right total knee arthroplasty, March 2018 Hypertension Hyperlipidemia PLAN: Continue postoperative care per orthopedics Activity as tolerated Pain control Incentive spirometer 10 times an hour Increase tramadol to 100 mg as patients pain is not currently controlled. Also add Tylenol q6 hours PRN for pain. Home meds as appropriate Monitor labs GI prophylaxis: Protonix 40 mg PO Daily DVT prophylaxis: Lovenox 30 mg subcu every 12 hours Monitor vital signs and address as appropriate Further recommendations pending patient's course Thank you for this consultation We will continue to follow with Ashley during her hospitalization Nurse practitioner note has been reviewed by physician. Signing provider agrees with the documented findings, assessment, and plan of care.
[2018-07-09] MEDS ORDERED: MULTIVITAMINS, THERA 1 EACH TAB PO SCH (12:00)
--- NOTE | 2018-07-09 12:39 | P.PN ---
Subjective Progress Note Date: 07/09/18 Principal diagnosis: Status post left total knee arthroplasty Patient is seen today resting in her hospital bed, she appears comfortable. She is family at bedside. She is ambulating with therapy. She denies any chest pain or shortness of breath. Objective - Vital Signs Vital signs: Vital Signs Temp 98.0 F 07/09/18 07:00 Pulse 80 07/09/18 07:00 Resp 16 07/09/18 07:00 BP 124/73 07/09/18 07:00 Pulse Ox 94 L 07/09/18 07:00 Intake & Output 07/08/18 07/09/18 07/09/18 18:59 06:59 18:59 Intake Total 1887 Output Total 20 Balance 1867 Weight 68.946 kg Intake: IV 1651 Oral 236 Output: Estimated Blood Loss 20 Other: Voiding Method Toilet # Voids 1 - Exam Left lower extremity: Incision is clean, dry, and intact. The prineo tape is in good condition. There is minimal soft tissue swelling and ecchymosis surrounding the medial and lateral aspects of the incision. Calf is soft, no tenderness with palpation. Plantar flexion, dorsiflexion, EHL, FHL are intact. Sensory exam to light touch throughout the extremity is intact, dorsal pedis pulses 2+. - Labs CBC & Chem 7: 07/09/18 06:36 Labs: Abnormal Lab Results - Last 24 Hours (Table) 07/09/18 Range/Units 06:36 Hgb 10.8 L (11.4-16.0) gm/dL Neutrophils # 8.5 H (1.3-7.7) k/uL Assessment and Plan Plan: Assessment: Postoperative day #1 status post left total knee arthroplasty Plan: Pain control, plan for tramadol and Tylenol discharge GI and DVT prophylaxis, aspirin 81 mg twice a day after discharge Wound care instructions discussed Home physical therapy and nursing after discharge Medical recommendations Discharge planning: Patient will be discharged home today Time with Patient: Less than 30
--- NOTE | 2018-07-09 12:42 | P.DS ---
Providers Date of admission: 07/08/18 10:23 Expected date of discharge: 07/09/18 Attending physician: Johny Soni Consults: 07/08/18 14:40 Consult Physician Routine Consulting Provider: Shon Kc Reason/Comments: Medical management Do you want consulting provider notified?: Yes Primary care physician: Shon Kc [place] [facility] Course: Date of admission: 07/08/2018 Date of discharge: 07/09/2018 Admission diagnosis: Status post left total knee arthroplasty Discharge diagnosis: Same Attending physician: Dr. Soni Surgical procedures: Left total knee arthroplasty Brief history: Patient is a 72-year-old female with a history of progressive primary left knee osteoarthritis. At this point patient has failed conservative treatment measures and has opted to proceed with a elective left total knee arthroplasty. Hospital course: Details of patient's surgery can be found in operative report. Patient tolerated the procedure well and was subsequently transported to orthopedic floor. Patient's orthopeidc and medical care was provided daily. Patient had daily laboratory tests performed for evaluation of overall blood counts. Patient had daily physical therapy to include strengthening range of motion as well as education with walker ambulation. Patient had daily CPM usage as part of their physical therapy program. Patient was treated with Lovenox for their postoperative DVT prophylaxis during their inpatient stay. Patient was noted to have a relatively uneventful postoperative course. Patient reported satisfactory pain control with oral pain medications by postoperative day 0. Patient showed satisfactory progress with physical therapy. Patient moved steadily through the program and had no difficulty meeting the goals by postoperative day 1. Given patient's otherwise satisfactory course and having met physical therapy goals, plan is to discharge patient home on postoperative day 1. Discharge condition/disposition: Patient will be discharged home in stable condition. Discharge medications: Instructions are given on resumption of patient's normal daily medications per primary care recommendation, in addition patient will be prescribed tramadol 50 mg, aspirin 81 mg. Discharge instructions: 1. Wound care and infection precautions, keep incision dry and covered while showering, no lotions, creams, moisturizers. No soaking, tubs, pools, hottubs. Do not scrub over the incision. 2. Weight-bear as tolerated with walker / cane until follow-up. 3. Ice and elevate when necessary. Do not exceed 20 minutes per hour with ice pack. 4. Utilize compression sleeve until seen at first follow up appointment. 5. Visiting nursing care. 6. Home physical therapy including home CPM. 7. Pain meds and anticoagulants per prescription. 8. Pain medication has potential to cause constipation. Increase oral fluid and fiber intake. Contact primary care provider if you have not had a bowel movement within 48 hours after discharge 9. No anti-inflammatory medication until discussed at first post operative visit, this including Motrin, Aleve, Mobic, Diclofenac. 10. Follow up in office at 2 weeks postop with Flaco Javed PA-C 11. Follow up with your primary care doctor 7-10 days after discharge. 12. Contact [facility] with any questions, . Procedures: Left total knee arthroplasty Patient Condition at Discharge: Good Plan - Discharge Summary Discharge Rx Participant: Yes New Discharge Prescriptions: New Aspirin [Adult Low Dose Aspirin EC] 81 mg PO BID #60 tablet. traMADol HCl [Ultram] 50 mg PO Q6H PRN #28 tab PRN Reason: Pain No Action Raloxifene [Evista] 60 mg PO DAILY Multivitamins, Thera [Multivitamin (formulary)] 1 tab PO DAILY Losartan Potassium [Cozaar] 100 mg PO DAILY Glucosamine Sulfate 500 mg PO BID Calcium Carbonate [Calcium] 600 mg PO BID Simvastatin [Zocor] 20 mg PO HS Acetaminophen [Tylenol Arthritis] 650 mg PO Q6H PRN PRN Reason: Pain Discharge Medication List Calcium Carbonate [Calcium] 600 mg PO BID 01/08/15 [History] Glucosamine Sulfate 500 mg PO BID 01/08/15 [History] Losartan Potassium [Cozaar] 100 mg PO DAILY 01/08/15 [History] Multivitamins, Thera [Multivitamin (formulary)] 1 tab PO DAILY 01/08/15 [History ] Raloxifene [Evista] 60 mg PO DAILY 01/08/15 [History] Simvastatin [Zocor] 20 mg PO HS 01/08/15 [History] Acetaminophen [Tylenol Arthritis] 650 mg PO Q6H PRN 03/19/18 [History] Aspirin [Adult Low Dose Aspirin EC] 81 mg PO BID #60 tablet. 07/09/18 [Rx] traMADol HCl [Ultram] 50 mg PO Q6H PRN #28 tab 07/09/18 [Rx] Follow up Appointment(s)/Referral(s): [facility], [NON-STAFF] - As Needed Facundo Javed, PAC [PHYSICIAN PUBLIC RELATIONS PROFESSIONAL] - 2 Weeks Activity/Diet/Wound Care/Special Instructions: Orthopedic Discharge Instructions: 1. Wound care and infection precautions, keep incision dry and covered while showering, no lotions, creams, moisturizers. No soaking, pools, hot tubs. Do not scrub over incision. 2. Weight-bear as tolerated with walker / cane until follow-up. 3. Ice and elevate when necessary. Do not exceed 20 minutes per hour with ice pack. 4. Utilize compression sleeve until seen at first follow up appointment. 5. Pain meds and anticoagulants per prescription. 6. Pain medication has potential to cause constipation. Increase oral fluid and fiber intake. Contact primary care provider if you have not had a bowel movement within 48 hours after discharge. 7. No anti-inflammatory medication until discussed at first post operative visit, this including Motrin, Aleve, Mobic, Diclofenac. 8. Follow up in office at 2 weeks postop with Flaco Javed PA-C 9. Follow up with your primary care doctor 7-10 days after discharge. 10. Contact [facility] with any questions, . Discharge Disposition: HOME WITH HOME HEALTH SERVICES
[2018-07-09] MEDS ORDERED: traMADol 50 MG TAB PO SCH (13:00)
[2018-07-09 16:41] VITALS: RESP 18
[2018-07-09 16:50] VITALS: BP 111/76
[2018-07-09] MEDS ORDERED: ATORVASTATIN 10 MG TAB PO SCH (21:00)
[2018-07-09] MEDS ORDERED: FAMOTIDINE 20 MG TAB PO SCH (21:00)
[2018-07-10] MEDS ORDERED: RALOXIFENE 60 MG TAB PO SCH (09:00)
[2018-07-10] MEDS ORDERED: FAMOTIDINE 20 MG TAB PO SCH (09:00)
[2018-07-10] MEDS ORDERED: LOSARTAN 50 MG TAB PO SCH (09:00)
== END 2018-07-09 17:09 | disposition home health service (06) | DRG 470 ==
LOC: 2ORMAIN 10:23 → 4SSUR 14:33
PROVIDERS: ADMIT Orthopaedic Surgery; ATTEND Orthopaedic Surgery
PROC: 0SRD0J9 Replacement of Left Knee Joint with Synthetic Substitute, Cemented, Open Approach (ICD-10-PCS; principal; 2018-07-08 12:40)
DX: M17.12 Unilateral primary osteoarthritis, left knee (principal); E78.5 Hyperlipidemia, unspecified; I10 Essential (primary) hypertension; Z96.651 Presence of right artificial knee joint; Z90.710 Acquired absence of both cervix and uterus; Z82.49 Family history of ischemic heart disease and other diseases of the circulatory system; Z79.82 Long term (current) use of aspirin; Z88.5 Allergy status to narcotic agent; Z88.0 Allergy status to penicillin; Z88.2 Allergy status to sulfonamides
CPT/HCPCS: 85025; 88300

== ENCOUNTER → 2019-01-20 | Outpatient (CLI) | payer MEDICARE ==
--- NOTE | 2019-01-20 10:23 | BD ---
EXAMINATION TYPE: Axial Bone Density DATE OF EXAM: 01/20/2019 COMPARISON: NONE CLINICAL HISTORY: Postmenopausal female Height: 5 FT 1 3/4 IN Weight: 147 FRAX RISK QUESTIONS: History of Fracture in Adulthood: YES ? RIBS 11/2018 RISK FACTORS HISTORY OF: Active: YES Postmenopausal woman: AGE 48 MEDICATIONS: Osteoporosis Medications: YES Which medication: EVISTA How Long: A LONG TIME Additional Medications: BENICAR, SIMVASTATIN,EVISTA Additional History: EXAM MEASUREMENTS: Bone mineral densitometry was performed using the [employer] System. Bone mineral density as measured about the Lumbar spine is: ----- L1-L4(G/cm2): 1.296 T Score Values are as follows: ----- L2: -0.1 ----- L3: 1.5 ----- L4: 2.1 ----- L1-L4: 1.0 Bone mineral density has:DECREASED -.4% SINCE STUDY OF 2015 Bone mineral density about the R hip (g/cm2): 0.877 Bone mineral density about the L hip (g/cm2): 0.874 T Score values are as follows: -----R Neck: -1.2 -----L Neck: -1.2 -----R Total: -0.3 -----L Total: -0.4 Bone mineral density has:DECREASED -2.6 SINCE STUDY OF 2015 IMPRESSION: Osteopenia (T Score between -2.5 and -1). There is slightly increased risk of fracture and the patient may be considered for treatment. Re-Screen 2-5 years. NOTE: T-SCORE=SD OF THE YOUNG ADULT MEAN.
== END ==
LOC: RADBDWWP 09:40
PROVIDERS: ATTEND Family Medicine
DX: M85.80 Other specified disorders of bone density and structure, unspecified site (principal)
CPT/HCPCS: 77080

== ENCOUNTER → 2019-09-24 | Outpatient (CLI) | payer MEDICARE ==
--- NOTE | 2019-09-25 13:38 | MM ---
Reason for exam: screening (asymptomatic). Last mammogram was performed 1 year and 3 months ago. History: Patient is postmenopausal. Benign right mammotome panel of the right breast, November 09, 2006. Took estrogen for 2 years. Physical Findings: A clinical breast exam by your physician is recommended on an annual basis and results should be correlated with mammographic findings. MG 3D Screening Mammo W/Cad Bilateral CC and MLO view(s) were taken. Prior study comparison: July 03, 2018, bilateral MG 3d screening mammo w/cad. June 22, 2016, bilateral MG 3d screening mammo w/cad. The breast tissue is heterogeneously dense. This may lower the sensitivity of mammography. Stable benign calcifications. Previous mammotome biopsy in the right breast. No significant changes when compared with prior studies. ASSESSMENT: Benign, BI-RAD 2 RECOMMENDATION: Routine screening mammogram of both breasts in 1 year.
== END | disposition home or self-care (01) ==
LOC: RADMAMWWP 13:36
PROVIDERS: ATTEND Family Medicine
DX: Z12.31 Encounter for screening mammogram for malignant neoplasm of breast (principal)
CPT/HCPCS: 77063; 77067

== ENCOUNTER → 2021-01-04 | Outpatient (CLI) | payer MEDICARE ==
--- NOTE | 2021-01-04 13:14 | BD ---
EXAMINATION TYPE: Axial Bone Density DATE OF EXAM: 01/04/2021 COMPARISON: NONE CLINICAL HISTORY: Height: 5 FT 2 IN Weight: 145 FRAX RISK QUESTIONS: Alcohol (3 or more units per day): NO Family History (Parent hip fracture): NO Glucocorticoids (More than 3mos): NO (Ex: prednisone, prednisolone, methylprednisolone, dexamethasone, and hydrocortisone). History of Fracture in Adulthood: NO Secondary Osteoporosis: 1. Type 1 Diabetes: NO 2. Hyperthyroidism: NO 3. Menopause before 45: NO 4. Malnutrition: NO 5. Chronic liver disease: NO Rheumatoid Arthritis: NO Current Tobacco Use: NO RISK FACTORS HISTORY OF: Surgery to Spine/Hip(right/left)/Wrist (right/left): NO Family History of Osteoporosis: NO Active: YES Diet low in dairy products/other sources of calcium: NO Postmenopausal woman: AGE 48 Take estrogen and/or progesterone medications: NONE NOW Lost more than 2 inches in height since high school: NO MEDICATIONS: Osteoporosis Medications: YES Which medication: EVISTA How Long: SHE IS NOT QUITE SURE BUT A LONG TIME Additional Medications: EVISTA, BLOOD PRESSURE MEDS, SIMVASTATIN Additional History: EXAM MEASUREMENTS: Bone mineral densitometry was performed using the [employer] System. Bone mineral density as measured about the Lumbar spine is: ----- L1-L4(G/cm2): 1.285 T Score Values are as follows: ----- L2: -0.1 ----- L3: 1.1 ----- L4: 2.0 ----- L1-L4: 0.9 Bone mineral density has: DECREASED -1.7 % since study of: 2018 Bone mineral density about the R hip (g/cm2): 0.880 Bone mineral density about the L hip (g/cm2): 0.813 T Score values are as follows: -----R Neck: -1.1 -----L Neck: -1.6 -----R Total: -0.4 -----L Total: -0.5 Bone mineral density has: DECREASED -2.1 % since study of: 2019 IMPRESSION: No evidence for osteoporosis or osteopenia. NOTE: T-SCORE=SD OF THE YOUNG ADULT MEAN.
--- NOTE | 2021-01-05 10:41 | MM ---
Reason for exam: screening (asymptomatic). Last mammogram was performed 1 year and 3 months ago. History: Patient is postmenopausal. Benign right mammotome panel of the right breast, November 09, 2006. Took estrogen for 2 years. Physical Findings: A clinical breast exam by your physician is recommended on an annual basis and results should be correlated with mammographic findings. MG 3D Screening Mammo W/Cad Bilateral CC and MLO view(s) were taken. Prior study comparison: September 24, 2019, bilateral MG 3d screening mammo w/cad. July 03, 2018, bilateral MG 3d screening mammo w/cad. The breast tissue is heterogeneously dense. This may lower the sensitivity of mammography. There are benign appearing round calcifications bilaterally. Previous mammotome biopsy in the right breast. There is no discrete abnormality. ASSESSMENT: Benign, BI-RAD 2 RECOMMENDATION: Routine screening mammogram of both breasts in 1 year.
== END | disposition home or self-care (01) ==
LOC: RADMAMWWP 10:53
PROVIDERS: ATTEND Family Medicine
DX: Z12.31 Encounter for screening mammogram for malignant neoplasm of breast (principal); Z78.0 Asymptomatic menopausal state
CPT/HCPCS: 77063; 77067; 77080

== ENCOUNTER 2022-12-01 15:12 | Emergency (ER) | payer MEDICARE ==
--- NOTE | 2022-12-01 15:38 | ED ---
General Adult HPI - General Source: patient, RN notes reviewed Mode of arrival: ambulatory Limitations: no limitations <Rohan Stone - Last Filed: 12/01/22 15:37> - General Source: patient, RN notes reviewed, old records reviewed <Jhonny Okeefe - Last Filed: 12/01/22 23:19> - General Stated complaint: fell and hit head Time Seen by Provider: 12/01/22 15:37 - History of Present Illness Initial comments: 77-year-old female presents emergency Department with chief complaint of a head injury. Patient states she get up to get something to drink states she seen in the kitchen when she fell because she states that she fainted. Patient states she struck her head she does complain of mild headache and patient denies any other injuries. Denies any blood thinners. (Rohan Stone) Patient is a 77-year-old female with past medical history remarkable for hypertension, hyperlipidemia, bilateral knee replacements who presents emergency Department after a near syncopal episode and fall yesterday. Patient states that around midnight she got up to drink some water. All day yesterday she was running around doing errands and did not eat or drink much she states. Got up from bed at midnight, went to go to drink water. Region to the fridge and get some juice to go with her water which is when she felt lightheaded, lost her balance and fell backwards. States she struck the back of her head on the ground. Did not lose consciousness fully. States she remembers the entire episode. Was able to get herself back up. States this is not occurred previously. Has been functioning normally throughout the day today however her daughters wanted her to come to the emergency department for evaluation. She is not on blood thinners. Has had no issues ambulating, walking, doing her normal everyday activities that the day today. No chest pain prior to her syncope or currently. No shortness of breath, abdominal pain, nausea, vomiting. No other acute complaints at this time. This is for further evaluation. Workup was started in triage. Patient was seen as a quick note. (Jhonny Okeefe) - Related Data Home Medications Medication Instructions Recorded Confirmed Calcium Carbonate [Calcium] 600 mg PO BID 01/08/15 07/08/18 Glucosamine Sulfate 500 mg PO BID 01/08/15 07/08/18 Losartan Potassium [Cozaar] 100 mg PO DAILY 01/08/15 07/08/18 Multivitamins, Thera [Multivitamin 1 tab PO DAILY 01/08/15 07/08/18 (formulary)] Raloxifene [Evista] 60 mg PO DAILY 01/08/15 07/08/18 Simvastatin [Zocor] 20 mg PO HS 01/08/15 07/08/18 Acetaminophen [Tylenol Arthritis] 650 mg PO Q6H PRN 03/19/18 07/08/18 Previous Rx's Medication Instructions Recorded Aspirin [Adult Low Dose Aspirin EC] 81 mg PO BID #60 tablet. 07/09/18 traMADol HCl [Ultram] 50 mg PO Q6H PRN #28 tab 07/09/18 Allergies Allergy/AdvReac Type Severity Reaction Status Date / Time hydrocodone [From [place]] AdvReac Nausea & Verified 07/08/18 14:57 Vomiting, abdominal pain Penicillins AdvReac Unknown Verified 07/08/18 14:57 Sulfa (Sulfonamide AdvReac Unknown Verified 07/08/18 14:57 Antibiotics) Review of Systems ROS Other: All systems not noted in ROS Statement are negative. <Rohan Stone - Last Filed: 12/01/22 15:37> ROS Other: All systems not noted in ROS Statement are negative. <Jhonny Okeefe - Last Filed: 12/01/22 23:19> ROS Statement: Those systems with pertinent positive or pertinent negative responses have been documented in the HPI. Review of Systems: CONST: Denies fever EYES: Denies blurry vision ENT: Denies nasal congestion C/V: Denies Chest pain RESP: Denies shortness of breath GI: Denies abdominal pain : Denies dysuria SKIN: Denies rash. MSK: Denies joint pain. NEURO: Endorses mild headache (Jhonny Okeefe) Past Medical History Past Medical History: Hypertension, Osteoarthritis (OA) Additional Past Medical History / Comment(s): had some problems recently w/back pain that turned into chest discomfort, recent stress test wnl per pt, c/o right groin pain-has seen ortho., has gallstones History of Any Multi-Drug Resistant Organisms: None Reported Past Surgical History: Hysterectomy, Orthopedic Surgery Additional Past Surgical History / Comment(s): surgery right knee Past Anesthesia/Blood Transfusion Reactions: No Reported Reaction Additional Past Anesthesia/Blood Transfusion Reaction / Comment(s): mother took long time to recuberate after anesthesia Past Psychological History: No Psychological Hx Reported Past Alcohol Use History: Occasional Past Drug Use History: None Reported - Past Family History Mother Family Medical History: Myocardial Infarction (VT) Additional Family Medical History / Comment(s): " from massive heart attack" <Rohan Stone - Last Filed: 12/01/22 15:37> General Exam <ChaseRohan Jean-Pierre - Last Filed: 12/01/22 15:37> <Jhonny Okeefe - Last Filed: 12/01/22 23:19> - General Exam Comments Initial Comments: Visual Physical Exam Vital signs reviewed General: Well-appearing, nontoxic, no acute distress. Head: Normocephalic, atraumatic Eyes: PERRLA, EOMI ENT: Airway patent Chest: Nonlabored breathing Skin: No visual rash, normal skin tone Neuro: Alert and oriented 3 Musculoskeletal: No gross abnormalities (MichealRohan haines) General: Appears in no acute distress. HEAD: Normal with no signs of head trauma. No evidence of raccoon eyes, Bazan sign. EYES: PERRLA, EOMI, conjunctiva normal, no discharge. Pupils 3 mm and equal bilaterally. ENT: Hearing grossly intact, normal oropharynx. RESPIRATORY: Clear breath sounds bilaterally. No wheezes, rales, or rhonchi. C/V: Regular rate and rhythm. S1 and S2 auscultated, no edema, peripheral pulses 2+ and intact throughout ABD: Abd is soft, nontender, nondistended EXT: Normal range of motion, no obvious deformity. Pelvis is stable. Invades without issue. No midline cervical, thoracic, lumbar spine tenderness to pa lpation. SKIN: No rashes or lesions observed on exposed skin. Right forehead abrasion, small NEURO: Alert and oriented x 4. Cranial nerves II-XII intact. No focal sensory or strength deficits. GCS of 15. NIH of 0. (Jhonny Okeefe) Course Vital Signs 12/01/22 15:35 Temperature 98.1 F Pulse Rate 100 Respiratory 20 Rate Blood Pressure 162/92 O2 Sat by Pulse 98 Oximetry Medical Decision Making - Lab Data Result diagrams: 12/01/22 15:37 12/01/22 15:37 - EKG Data -: EKG Interpreted by Me <Jhonny Okeefe - Last Filed: 12/01/22 23:19> - Medical Decision Making Was pt. sent in by a medical professional or institution (, [facility], [employer], urgent care, hospital, or usp...) When possible be specific @ -No Did you speak to anyone other than the patient for history (EMS, parent, family, police, friend...)? What history was obtained from this source @ -No Did you review nursing and triage notes (agree or disagree)? Why? @ -I reviewed and agree with nursing and triage notes Were old charts reviewed (outside hosp., previous admission, EMS record, old EKG, old radiological studies, urgent care reports/EKG's, usp records)? Report findings @ -No old charts were reviewed Differential Diagnosis (chest pain, altered mental status, abdominal pain women, abdominal pain men, vaginal bleeding, weakness, fever, dyspnea, syncope, headache, dizziness, GI bleed, back pain, seizure, CVA, palpatations, mental health, musculoskeletal)? @ -Fall, muscle strain, muscle pain, intracranial injury, neck injury, dehydration, UTI, cardiac abnormality. Nursing to the episode. This list is not all inclusive. EKG interpreted by me (3pts min.). @ -As above X-rays interpreted by me (1pt min.). @ -Chest x-ray shows no acute cardiopulmonary process that is obvious. CT interpreted by me (1pt min.). @ -CT brain and C-spine reveal no obvious acute intracranial process or cervical spine process. No obvious injuries. U/S interpreted by me (1pt. min.). @ -None done What testing was considered but not performed or refused? (CT, X-rays, U/S, labs)? Why? @ -None What meds were considered but not given or refused? Why? @ -None Did you discuss the management of the patient with other professionals ([facility] i.e. , [facility], [employer], lab, RT, psych nurse, group social worker, door repairer bus, teacher, chief clinical officer, case technician)? Give summary @ -No Was smoking cessation discussed for >3mins.? @ -No Was critical care preformed (if so, how long)? @ -No Were there social determinants of health that impacted care today? How? (Homelessness, low income, unemployed, alcoholism, drug addiction, transportatio n, low edu. Level, literacy, decrease access to med. care, long term, rehab)? @ -No Was there de-escalation of care discussed even if they declined (Discuss DNR or withdrawal of care, Hospice)? DNR status @ -No What co-morbidities impacted this encounter? (DM, HTN, Smoking, COPD, CAD, Cancer, CVA, ARF, Chemo, Hep., AIDS, mental health diagnosis, sleep apnea, morbid obesity)? @ -None Was patient admitted / discharged? Hospital course, mention meds given and route, prescriptions, significant lab abnormalities, going to OR and other pertinent info. @ -Based on the patient's presentation and physical exam, she was initially seen as a quick note in triage and workup started. I evaluated her when she was placed in room 26. She has what sounds like a near syncopal episode with fall from standing yesterday without any loss of consciousness. Is not on thinners. No obvious injuries. Large workup was obtained including screening EKG, had imaging, chest x-ray. Everything is negative. Urine is still pending, however patient has no symptoms. Troponin is undetectable. CT imaging negative for any acute intracranial process. Chest x-ray unremarkable. EKG within acceptable limits. Vital signs within acceptable limits.Patient does have a forehead abrasion, but believes she is up-to-date on tetanus. I spoke with the patient regarding her negative workup. She is been function throughout the day today without issue. I do believe it is safer to be dischar ge home and she was in agreement with. Strict return precautions were discussed. She does have a follow-up appointment with Dr. Kc on Sunday of next week but I recommended she call on Sunday to see if she can move it. She was in agreement this plan. I instructed the patient to follow up with their PCP in the next 1-3 days. I explained that the patient should return to the emergency department if they experience any worsening symptoms. Strict return precautions were discussed with the patient. The patient expressed understanding of these instructions. I answered all questions that the patient had. The patient was discharged home in good condition with their prescriptions and follow up information. Undiagnosed new problem with uncertain prognosis? @ -No Drug Therapy requiring intensive monitoring for toxicity (Heparin, Nitro, Insulin, Cardizem)? @ -No Were any procedures done? @ -No Diagnosis/symptom? @ -Fall, near syncope Acute, or Chronic, or Acute on Chronic? @ -Acute Uncomplicated (without systemic symptoms) or Complicated (systemic symptoms)? @ -Uncomplicated Side effects of treatment? @ -No Exacerbation, Progression, or Severe Exacerbation? @ -No Poses a threat to life or bodily function? How? (Chest pain, USA, VT, pneumonia, PE, COPD, DKA, ARF, appy, cholecystitis, CVA, Diverticulitis, Homicidal, Suicidal, threat to staff... and all critical care pts) @ -No Diagnosis/symptom? @ -Abrasion Acute, or Chronic, or Acute on Chronic? @ -Acute Uncomplicated (without systemic symptoms) or Complicated (systemic symptoms)? @ -Uncomplicated Side effects of treatment? @ -none Exacerbation, Progression, or Severe Exacerbation] @ -no Poses a threat to life or bodily function? @ -no (Jhonny Okeefe) - Lab Data Lab Results 12/01/22 12/01/22 12/01/22 Range/Units 15:37 15:37 15:37 WBC 11.2 H (3.8-10.6) k/uL RBC 4.10 (3.80-5.40) m/uL Hgb 12.4 (11.4-16.0) gm/dL Hct 37.1 (34.0-46.0) % MCV 90.5 (80.0-100.0) fL MCH 30.3 (25.0-35.0) pg MCHC 33.5 (31.0-37.0) g/dL RDW 12.1 (11.5-15.5) % Plt Count 367 (150-450) k/uL MPV 7.2 Neutrophils % 69 % Lymphocytes % 23 % Monocytes % 5 % Eosinophils % 2 % Basophils % 0 % Neutrophils # 7.7 (1.3-7.7) k/uL Lymphocytes # 2.6 (1.0-4.8) k/uL Monocytes # 0.6 (0-1.0) k/uL Eosinophils # 0.2 (0-0.7) k/uL Basophils # 0.0 (0-0.2) k/uL PT 10.1 (9.0-12.0) sec INR 0.9 (<1.2) APTT 23.7 (22.0-30.0) sec Sodium 132 L (137-145) mmol/L Potassium 4.4 (3.5-5.1) mmol/L Chloride 97 L (98-107) mmol/L Carbon Dioxide 27 (22-30) mmol/L Anion Gap 8 mmol/L BUN 21 H (7-17) mg/dL Creatinine 0.83 (0.52-1.04) mg/dL Est GFR (CKD-EPI)AfAm 78 (>60 ml/min/1.73 sqM) Est GFR (CKD-EPI)NonAf 68 (>60 ml/min/1.73 sqM) Glucose 92 (74-99) mg/dL Calcium 10.4 H (8.4-10.2) mg/dL Magnesium 2.2 (1.6-2.3) mg/dL Total Bilirubin 0.4 (0.2-1.3) mg/dL AST 22 (14-36) U/L ALT 19 (4-34) U/L Alkaline Phosphatase 89 (38-126) U/L Troponin I (0.000-0.034) ng/mL Total Protein 7.0 (6.3-8.2) g/dL Albumin 4.3 (3.5-5.0) g/dL 12/01/22 Range/Units 15:37 WBC (3.8-10.6) k/uL RBC (3.80-5.40) m/uL Hgb (11.4-16.0) gm/dL Hct (34.0-46.0) % MCV (80.0-100.0) fL MCH (25.0-35.0) pg MCHC (31.0-37.0) g/dL RDW (11.5-15.5) % Plt Count (150-450) k/uL MPV Neutrophils % % Lymphocytes % % Monocytes % % Eosinophils % % Basophils % % Neutrophils # (1.3-7.7) k/uL Lymphocytes # (1.0-4.8) k/uL Monocytes # (0-1.0) k/uL Eosinophils # (0-0.7) k/uL Basophils # (0-0.2) k/uL PT (9.0-12.0) sec INR (<1.2) APTT (22.0-30.0) sec Sodium (137-145) mmol/L Potassium (3.5-5.1) mmol/L Chloride (98-107) mmol/L Carbon Dioxide (22-30) mmol/L Anion Gap mmol/L BUN (7-17) mg/dL Creatinine (0.52-1.04) mg/dL Est GFR (CKD-EPI)AfAm (>60 ml/min/1.73 sqM) Est GFR (CKD-EPI)NonAf (>60 ml/min/1.73 sqM) Glucose (74-99) mg/dL Calcium (8.4-10.2) mg/dL Magnesium (1.6-2.3) mg/dL Total Bilirubin (0.2-1.3) mg/dL AST (14-36) U/L ALT (4-34) U/L Alkaline Phosphatase (38-126) U/L Troponin I <0.012 (0.000-0.034) ng/mL Total Protein (6.3-8.2) g/dL Albumin (3.5-5.0) g/dL - EKG Data EKG Comments: 12-lead Electrocardiogram Interpretation Note EKG was reviewed and interpreted by myself. 12-lead ECG performed at 2004 is interpreted by me as revealing normal sinus rhythm at a rate of 82 beats per minute. [place] is normal. RI interval is 173 ms, QRS duration 97 ms, QTc is 399 ms.. There were no ST or T wave abnormalities to suggest myocardial ischemia or injury. R wave progression across the precordium was satisfactory. By my interpretation this EKG is non-diagnostic for acute ischemia. (Jhonny Okeefe) Disposition <Rohan Stone - Last Filed: 12/01/22 15:37> Is patient prescribed a controlled substance at d/c from ED?: No Time of Disposition: 19:30 <Jhonny Okeefe - Last Filed: 12/01/22 23:19> Clinical Impression: Fall, Near syncope, Abrasion Disposition: HOME SELF-CARE Condition: Good Referrals: Shon Kc DO [Primary Care Provider] - 1-2 days
[2022-12-01 15:40] VITALS: BP 162/92; PULSE 100; RESP 20; TEMP 98.1
[2022-12-01 16:06] LABS: Basophils % (A) 0 %; Eosinophils # (A) 0.2 k/uL (0-0.7); Eosinophils % (A) 2 %; HCT 37.1 % (34.0-46.0); HGB 12.4 gm/dL (11.4-16.0); Lymphocytes # (A) 2.6 k/uL (1.0-4.8); Lymphocytes % (A) 23 %; MCH 30.3 pg (25.0-35.0); MCHC 33.5 g/dL (31.0-37.0); MCV 90.5 fL (80.0-100.0); Mean Platelet Volume 7.2; Monocytes # (A) 0.6 k/uL (0-1.0); Monocytes % (A) 5 %; Neutrophils # (A) 7.7 k/uL (1.3-7.7); Neutrophils % (A) 69 %; Platelet Count 367 k/uL (150-450); RDW 12.1 % (11.5-15.5); WBC 11.2 k/uL (3.8-10.6)
[2022-12-01 16:15] LABS: Albumin 4.3 g/dL (3.5-5.0); Calcium 10.4 mg/dL (8.4-10.2); Magnesium 2.2 mg/dL (1.6-2.3); Potassium 4.4 mmol/L (3.5-5.1); Total Bilirubin 0.4 mg/dL (0.2-1.3)
[2022-12-01 16:21] LABS: INR 0.9 (<1.2); Partial Thromboplastin Time 23.7 sec (22.0-30.0); Prothrombin Time 10.1 sec (9.0-12.0)
--- NOTE | 2022-12-01 16:34 | CT ---
EXAMINATION TYPE: CT brain randolph neumann con DATE OF EXAM: 12/01/2022 COMPARISON: None HISTORY: syncope, fall, hit back of head CT DLP: 1319.7 mGycm Automated exposure control for dose reduction was used. TECHNIQUE: CT scan of the head and cervical spine are performed without contrast. FINDINGS: CT brain: There is no acute intracranial hemorrhage, mass effect, or midline shift identified. The ventricles and sulci are within normal limits in size. The globes are intact and the visualized sinuses are cl ear. CT cervical spine: Cervical spine is visualized in its entirety from C1 through upper thoracic levels and demonstrates s atisfactory alignment without evidence of acute fracture or dislocation. Prevertebral soft tissue ap pears within normal limits. The C1-C2 articulation is unremarkable. There is moderate degenerative disc disease at the C4-5 and C5-6 level with moderate disc space narrowing and spondylosis. There is moderate degeneration of the uncovertebral joints at C4-5 and C5-6 resulting in mild bony neural fora robina stenosis. IMPRESSION: 1. There is no acute fracture or dislocation evident in the cervical spine. 2. No acute intracranial hemorrhage, mass effect, or midline shift is seen.
--- NOTE | 2022-12-01 17:20 | XR ---
EXAMINATION TYPE: XR chest 2V DATE OF EXAM: 12/01/2022 COMPARISON: 01/07/2015 HISTORY: Syncope TECHNIQUE: 2 views FINDINGS: Heart is normal. Lungs are clear. Diaphragm is normal. Bony thorax is intact. IMPRESSION: No active cardiopulmonary disease. Normal heart. No change.
== END 2022-12-01 20:15 | disposition home or self-care (01) ==
LOC: EC 15:12
DX: S00.81XA Abrasion of other part of head, initial encounter (principal); R55 Syncope and collapse; I10 Essential (primary) hypertension; M19.90 Unspecified osteoarthritis, unspecified site; Z88.0 Allergy status to penicillin; Z88.2 Allergy status to sulfonamides; Z88.5 Allergy status to narcotic agent; Z79.899 Other long term (current) drug therapy; W01.198A Fall on same level from slipping, tripping and stumbling with subsequent striking against other object, initial encounter
CPT/HCPCS: 36415; 70450; 71046; 72125; 80053; 83735; 84484; 85025; 85610; 85730; 93005; 99284